=== PATIENT | male | born 1990 | race Caucasian/White ===

== ENCOUNTER 2022-11-12 14:31 | Outpatient (AMB) | payer BC, SELFPAY ==
[2022-11-12 14:37] VITALS: BP 142/98; PULSE 93; O2SAT 98; BMI 29.9
--- NOTE | 2022-11-12 14:37 | MHC.PC.OV ---
Vital Signs 11/12/22 14:37 11/12/22 15:11 Height 5 ft 8 in Weight 196 lb 6 oz BMI 29.9 BP 142/98 H 136/95 H Blood Pressure Location Rt brachial Position Sitting Pulse 93 Pulse Source Pulse Oximeter Pulse Oximetry (%) 98 Oxygen Delivery Method Room Air Intake Visit Reasons: [employer]/asthma Allergies No Known Allergies Allergy (Unverified 11/12/22 14:40) Medication List - Last Reconciled 11/12/22 by SHELTON Castro nicotine (Nicoderm CQ) 1 patch transdermal Q24H 30 days Tobacco use date assessed: 11/12/22 Dental Screening Dental Screen Date: 11/12/22 Did you have a dental visit in the last 12 months?: Yes Did you have a dental problem in the last 6 months where you did not have access to dental care?: No Was dental information given to patient?: Patient has dentist HPI [employer]/asthma HPI Details New pt is here for a PE. Will order labs. Pt is interested in smoking cessation. He has tried nicotine gum previously which he had a negative reaction to. Will send nicotine patches. Pt reports multiple skin tags to his bilat axillary regions. They do rub on his shirt and cause irritation. He sweats a lot at work. Will refer to derm. Pt's blood pressure is elevated today. Will have pt monitor his BP at home and drop off values in 3 weeks. Denies chest pain, shortness of breath, headache, dizziness, and blurred vision. PFSH Family History Father Substance use disorder Social History Housing: House Patient Tobacco Use Status: Current everyday Tobacco user Cigarettes Per Day: 6 e-Cigarette/Vaping Use: Never Used Second Hand Smoke Exposure: No service: No Current occupational status: employed Current occupation: [employer] Current occupational exposures/hazards: Yes Cognitive needs: No Hearing needs: No Vision needs: No Questionnaire PHQ-9 Over the last 2 weeks, how often have you been bothered by any of the following problems? 1. Little interest or pleasure in doing things: not at all 2. Feeling down, depressed, or hopeless: not at all 3. Trouble falling or staying asleep, or sleeping too much: not at all 4. Feeling tired or having little energy: not at all 5. Poor appetite or overeating: not at all 6. Feeling bad about yourself - or that you are a failure or have let yourself or your family down: not at all 7. Trouble concentrating on things, such as reading the newspaper or watching television: not at all 8. Moving or speaking so slowly that other people could have noticed. Or the opposite - being so fidgety or restless that you have been moving around a lot more than usual: not at all 9. Thoughts that you would be better off or of hurting yourself in some way: not at all Total score: 0 Depression Screening Interpretation: Negative 00102 - PHQ-9 Billing: Yes Source: Developed by Drs. Gregory Land, Mirna Juarez, Jignesh Carcamo and colleagues, with an educational kaleb from [employer] Thrive Questionnaire Date Thrive assessed: 11/12/22 I am a: Patient What is your living situation today?: I have a steady place to live Within the past 12 months, did the food you bought not last and you didn't have the money to get more?: Never true Within the past 12 months, did you worry whether your food would run out before you got money to buy more?: Never true Do you have trouble paying for medicines?: No Do you have trouble getting transportation to medical appointments?: No Do you have trouble paying your heating and electricity bill?: No Do you have trouble taking care of your child, family member or friend?: No Do you have trouble with day-to-day activities such as bathing, preparing meals, shopping, managing finances, etc.?: No Are you currently unemployed and looking for a job?: No Are you interested in more education?: Yes Currently or been in a relationship where the following occur: no concerns reported AUDIT C Alcohol Use Questionnaire (AUDIT-C) 1. How often do you have a drink containing alcohol?: 2-4 times a month 2. How many drinks containing alcohol do you have on a typical day when you are drinking?: 3 or 4 3. How often do you have six or more drinks on one occasion?: Less than monthly Total Score: 4 Score Reviewed/Action Taken: Yes MICHELE-7 AMB Questionnaire MICHELE-7 Date MICHELE - 7 assessed: 11/12/22 Feeling nervous, anxious, or on edge: 0 = Not at all Not being able to stop or control worryin = Not at all Worrying too much about different things: 0 = Not at all Trouble relaxin = Not at all Being so restless that it is hard to sit still: 0 = Not at all Becoming easily annoyed or irritable: 0 = Not at all Feeling afraid as if something awful might happen: 0 = Not at all Total MIHCELE-7 score (0-4 normal; 5-9 mild; 10-14 moderate; 15-21 severe): 0 Source: Developed by Drs. Gregory Land, Mirna Juarez, Jignesh Carcamo and colleagues, with an educational kaleb from [employer] MICHELE-7 Assessment Billing MICHELE-7 Assessment Tool: MICHELE-7 Assessment 82713 Review of Systems Const Denies chills and Denies fever(s) Eyes Denies blurry vision ENT Denies vertigo, Denies dizziness and Denies sore throat Card Denies chest pain at rest, Denies chest pain with activity, Denies diaphoresis, Denies dyspnea and Denies dyspnea on exertion Resp Denies cough, Denies dyspnea, Denies dyspnea on exertion and Denies wheezing GI Denies abdominal pain, Denies melena, Denies hematochezia, Denies constipation, Denies diarrhea and Denies loose stools Denies hematuria Musc Denies numbness and Denies tingling Skin/Breast Denies lesions Neuro Denies vertigo, Denies dizziness, Denies numbness and Denies tingling Psych Denies anxiety, Denies depression, Denies homicidal ideation, Denies suicidal ideation and Denies other (substance abuse) Aller/Immun Denies wheezing Physical exam (Primary Care) Vital Signs: Last Vital Signs Pulse 93 11/12/22 14:37 BP 136/95 H 11/12/22 15:11 Pulse Ox 98 11/12/22 14:37 Oxygen Delivery Method Room Air 11/12/22 14:37 BMI result Body Mass Index 29.9 Tobacco/Smoking Status: Tobacco use Status Tobacco use date assessed 11/12/22 11/12/22 14:44 Patient Tobacco Use Status Current everyday Tobacco 11/12/22 14:44 e-Cigarette/Vaping Use Never Used 09/21/23 14:44 PHQ-9: PHQ-9 Score PHQ-9: Total score 0 11/12/22 15:09 Depression Screening Interpretation: Negative Thrive Assessment: Date of Thrive Assessment Date Thrive assessed 11/12/22 11/12/22 15:09 Currently or been in a relationship where the following occur: no concerns reported Const General: cooperative Nutritional Appearance: well nourished Orientation/consciousness: patient oriented x3 HENMT Head: Yes normal to inspection, Yes normocephalic and Yes atraumatic Ears: TM's normal bilaterally Eyes General: appearance normal, both eyes and all related structures Alignment and Position: alignment normal and position normal Neck Neck: Yes normal visual inspection and Yes no lymphadenopathy Thyroid: Thyroid normal Resp Effort & Inspection: normal respiratory effort Auscultation: clear to auscultation bilaterally Cardio Rate: regular rate Rhythm: regular rhythm Heart sounds: S1 normal heart sound present, S2 normal heart sound present and no murmurs GI Palpation (GI): Soft to palpation and nontender Auscultation: normal bowel sounds Male General Exam: Yes normal external exam Penis: normal penis Scrotum: scrotum normal, testes descended bilaterally and no inguinal hernias Testes: no testicular mass Skin Other: several skin tags to bilat axillary regions Rashes: no rashes Neuro General: patient oriented x3, moves all extremities, no focal motor deficits and deep tendon reflexes 2+ bilaterally Romberg Test: Negative Psych Appearance: grossly normal Mental Status: mental status grossly normal Speech and movement: Normal speech and movement present Affect: normal affect Attitude: cooperative Thought process: Normal thought process present Thought content: Normal thought content present Insight: Good insight present (Psych) Judgement: Good judgement present (Psych) Assessment and Plan Assessment & Plan (1) Physical exam: Code(s): Z00.00 - Encounter for general adult medical examination without abnormal findings Plan: Labs ordered (2) Skin tag: Code(s): L91.8 - Other hypertrophic disorders of the skin Plan: Referred to derm (3) HTN (hypertension): Code(s): I10 - Essential (primary) hypertension Plan: pt will drop off values from home in approx 3 weeks (4) Smoker: Code(s): F17.200 - Nicotine dependence, unspecified, uncomplicated Plan The patient agreed to the use of a medical oncologist for this encounter. Scribed for ARIANA AlexandreP- by Neris Gordon, medical oncologist, on 11/12/2022 at 14:50 EST. Orders: Orders Comprehensive [place]. Panel Fast Today Z00.00 - Encounter for general adult medical examination without abnormal findings UA CC w/rflx Micro + Cult Today Z00.00 - Encounter for general adult medical examination without abnormal findings Lipid Panel Today Z00.00 - Encounter for general adult medical examination without abnormal findings Complete Blood Count Auto Diff Today Z00.00 - Encounter for general adult medical examination without abnormal findings TSH reflex Free T4 Today Z00.00 - Encounter for general adult medical examination without abnormal findings Referrals Dermatology Referral L91.8 - Other hypertrophic disorders of the skin Medications: New nicotine (Nicoderm CQ) 1 patch transdermal Q24H 28 ea 0RF 30 days Coding Level of Care Code New Pt Prev Care 18-39yr([id number] Diagnoses Physical exam Z00.00 Skin tag L91.8 HTN (hypertension) I10 Smoker F17.200 Additional Codes MICHELE-7 Assessment Billing - MICHELE-7 Assessment Tool: MICHELE-7 Assessment 39146 ([id number])
[2022-11-12 15:11] VITALS: BP 136/95
== END 2022-11-12 15:12 | disposition home or self-care (01) ==
PROVIDERS: Visit Provider Nurse Practitioner Family
DX: Z00.00 Encounter for general adult medical examination without abnormal findings (principal); L91.8 Other hypertrophic disorders of the skin; I10 Essential (primary) hypertension; F17.200 Nicotine dependence, unspecified, uncomplicated
CPT/HCPCS: 99385